=== PATIENT | female | born 1930 | race Caucasian/White ===

== ENCOUNTER 2018-12-01 16:08 | Emergency (ER) | payer MEDICARE, OTHER ==
[~2018-12-01] VITALS: Ht 154.9 cm; Wt 67.1 kg
[~2018-12-01 16:08] MED LIST: ALENDRONATE SOD70 MG PO; ALLOPURINOL100 MG PO; AMIODARONE HCL200 MG PO; BACTRIM DS TAB1 EACH PO; CARVEDILOL25 MG PO; CEPHALEXIN500 MG PO; COREG12.5 MG PO; FLUOROMETHOLONE5 ML OPTH; FUROSEMIDE40 MG PO; LEVOTHYROXINE125 MCG PO; LEVOTHYROXINE137 MCG PO; METOLAZONE5 MG PO; MUPIROCIN22 GM TOP; PACERONE100 MG PO; PERCOCET 5-3251 EACH PO; POTASSIUM CHLO10 MEQ PO; POTASSIUM CHLO20 ME1 PO; PRILOSEC20 MG PO; SIMVASTATIN10 MG PO; SIMVASTATIN20 MG PO; VITAMIN D2000 UNIT PO; WARFARIN SODIU2.5 MG PO
[2018-12-01] MEDS ORDERED: ALLOPURINOL100 MG PO (16:23)
== END 2018-12-01 18:11 | disposition home or self-care (01) ==
LOC: ED 16:08
PROC: 0XQBXZZ Repair Right Elbow Region, External Approach (ICD-10-PCS; principal; 2018-12-01)
DX: S51.011A Laceration without foreign body of right elbow, initial encounter (principal); E03.9 Hypothyroidism, unspecified; I10 Essential (primary) hypertension; I48.91 Unspecified atrial fibrillation; Z88.5 Allergy status to narcotic agent; Z88.6 Allergy status to analgesic agent; Z79.899 Other long term (current) drug therapy; Z79.01 Long term (current) use of anticoagulants; W01.198A Fall on same level from slipping, tripping and stumbling with subsequent striking against other object, initial encounter
CPT/HCPCS: 12002; 70450; 85610; 99283-25

== ENCOUNTER 2018-12-10 11:08 | Emergency (ER) | payer MEDICARE, OTHER ==
[~2018-12-10] VITALS: Ht 154.9 cm; Wt 67.1 kg
[~2018-12-10 11:08] MED LIST changes: +PRILOSEC OTC20 MG PO; -PRILOSEC20 MG PO
--- OUTSIDE RECORDS SUMMARY | 2018-12-10 11:12 | XMS ---
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 Kati VISIT COUNT (12 MO.) 2 [facility] TOTAL 2 NOTE: Visits indicate total known visits. 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
== END 2018-12-10 11:32 | disposition home or self-care (01) ==
LOC: ED 11:08
DX: Z48.02 Encounter for removal of sutures (principal)

== ENCOUNTER 2018-12-21 10:40 | Inpatient (IN) | payer MEDICARE, OTHER ==
[~2018-12-21] VITALS: Ht 154.9 cm; Wt 65.4 kg
--- OUTSIDE RECORDS SUMMARY | 2018-12-21 10:44 | XMS ---
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 Kati VISIT COUNT ([address] [facility] TOTAL 3 NOTE: Visits indicate total known visits. 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
--- NOTE | 2018-12-21 16:34 | EKG ---
[facility] [address] [facility] [place], [place] [address] Signed AV dual-paced rhythm with prolonged AV conduction Abnormal ECG No previous ECGs available Confirmed by COREEN GARCIA DO ([id number]) on 12/21/2018 4:33:48 PM Electronically Signed By: COREEN GARCIA DO 12/21/18 1634 PATIENT NAME: ALIYA FRANKLIN Electrocardiogram DATE OF : 32 PHYSICIAN: COREEN GARCIA DO REPORT #: [id number] REPORT IS CONFIDENTIAL AND NOT TO BE RELEASED WITHOUT AUTHORIZATION
[2018-12-25] MEDS ORDERED: ALLOPURINOL100 MG PO (09:27)
== END 2018-12-25 11:39 | disposition home or self-care (01) | DRG 291 ==
LOC: ED 10:40 → MS 14:41
PROVIDERS: ADMIT Student in an Organized Health Care Education/Training Program
DX: I11.0 Hypertensive heart disease with heart failure (principal); J96.01 Acute respiratory failure with hypoxia; I50.23 Acute on chronic systolic (congestive) heart failure; I48.91 Unspecified atrial fibrillation; E03.9 Hypothyroidism, unspecified; E79.0 Hyperuricemia without signs of inflammatory arthritis and tophaceous disease; G47.33 Obstructive sleep apnea (adult) (pediatric); K21.9 Gastro-esophageal reflux disease without esophagitis; I08.1 Rheumatic disorders of both mitral and tricuspid valves; Z88.5 Allergy status to narcotic agent; Z95.0 Presence of cardiac pacemaker; Z66 Do not resuscitate; Z79.01 Long term (current) use of anticoagulants; Z79.83 Long term (current) use of bisphosphonates; Z79.899 Other long term (current) drug therapy
CPT/HCPCS: 36415; 71046; 80048; 80053; 81001; 83735; 83880; 84443; 84484; 85025; 85610; 93005; 93010; 93306; 96374; 97161; 97165; 97535; 99285-25; J1940